=== PATIENT | male | born 1965 | race Caucasian/White ===

== ENCOUNTER 2016-11-09 06:28 | Observation (INO) ==
[2016-11-09] MEDS ORDERED: ONDANSETRON 4 MG/2 ML VIAL IV PRN (06:40)
[2016-11-09] MEDS ORDERED: ASPIRIN 325 MG TABLET PO STA (06:40)
[2016-11-09] MEDS ORDERED: ASPIRIN 325 MG TABLET ONE (06:43)
[2016-11-09] MEDS ORDERED: ALUM/MAG/SIMETH/LIDO VISC 1:1 30 ML BOTTLE PO STA (06:44)
[2016-11-09] MEDS ORDERED: FAMOTIDINE 20 MG/2 ML VIAL IV STA (06:44)
--- NOTE | 2016-11-09 06:49 | Emergency Department Note ---
Namrata Wakefield Gwan, am scribing for, and in the presence of, Kiran Tariq MD 06:41 . Chandni Wakefield James D, MD, personally performed the services described in this documentation, ascribed by Alyssa Ott in my presence, and it is both accurate and complete 644 . 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 His associated sxs have been diaphoresis and SOB. He stated that his pain feels like someone is sitting on his chest. 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 He noted that he has had a heart cath performed by Dr. Ruiz in June that resulted NML. He denies smoking. Patient has a PMHx of IDDM and HTN. Patient stated that this pain is similar to the pain he had before. No other problems/complaints reported in ED. patient states that he was awakened with his chest pain. He denies cigarette smoking. He does have a history of diabetes mellitus. Patient states that he was given 3 sublingual nitroglycerin in the ambulance and took one at home prior to being placed in the ambulance without any relief of his chest pain. Onset (ago): hour(s) Consistency: constant Severity: moderate Quality: other Allergies/Adverse Reactions: Allergies Allergy/AdvReac Type Severity Reaction Status Date / Time morphine Allergy Irritable Unverified 07/20/16 18:30 Home Medications: Home Medications Medication Instructions Recorded Confirmed Type Insulin Glargine [Lantus] 23 unit SUBCUT BID 07/20/16 11/09/16 History Insulin Lispro [HumaLOG KwikPen] See Protocol SUBCUT DAILY PRN 07/20/16 History Nitroglycerin Sl Tab [Nitrostat] 0.4 mg SL Q5M PRN 07/20/16 11/09/16 History metFORMIN [Glucophage] 850 mg PO TID 07/20/16 11/09/16 History Acetaminophen Tab [Tylenol Tab] 650 mg PO Q4H PRN #0 tablet 07/21/16 11/09/16 Rx Aspirin EC Tab 81 mg PO DAILY #30 tablet 07/21/16 11/09/16 Rx Atorvastatin [Lipitor] 20 mg PO BEDTIME #30 tablet 07/21/16 11/09/16 Rx Review of System - Review of System 12 point system: reviewed and no additional remarkable complaints except as stated - Review of System Constitutional: Present: as per HPI, diaphoresis Respiratory: Present: as per HPI, other (short of breathe) Cardiovascular: Present: as per HPI, chest pain Medical,Surgical,& Family Hx - Medical History Cardio: History of: CAD (he gives a history of having prior stents placed.), VT , Cardiovascular Problems No history of: Aneurysm, Cardiac Dysrhythmia, Cerebrovascular Disease, Congenital Heart Disease, CHF, Hypertension, Pacemaker, PVD, Valvular Heart Disease Neurology: No history of: Brain Aneurysm, Cerebral Hemorrhage, Cerebrovascular Accident , Cerebral Palsy, Dementia, Migraine, Multiple Sclerosis, Parkinson's Disease, Peripheral Neuropathy, Seizures, TIA, Vertigo, Neurologocal Cancer Endocrine: History of: Diabetes Mellitus (IDDM) No history of: Dyslipidemia - Surgical History Cardiac Surgeries: Sugical HX of: Cardiac Catheterization (stents times 2), Cardiac Surgery ([address] about 10 years ago) Thoracic Surgeries: Patient denies;: Organ Transplant, Lobectomy Neurologic Surgeries: Patient denies: Brain Aneurysm, Cerebral Hemorrhage, Neurologic Surgery HEENT Surgeries: Patient denies: Thyroid Surgery Abdominal Surgeries: Surgical HX of: Abdominal Surgery, Cholecystectomy ( gallbladder removal 2006) Reproductive Surgeries: Patient denies;: Genitourinary Surgery - Family History Family History: Reports;: Family Heart Disease (in their forties) Denies;: Family Anesthesia Reaction, Family Cancer, Family Diabetes, Family Hypertension, Family Psychiatric Problems, Family Stroke - Social History Smoking Status: Unknown if ever smoked Exam Vital Signs: Vital Signs Temperature 98.3 F 11/09/16 06:28 Pulse Rate 81 11/09/16 06:40 Respiratory Rate 20 11/09/16 06:40 Blood Pressure 101/43 11/09/16 06:40 O2 Sat by Pulse Oximetry 96 11/09/16 06:40 GENERAL: This is a well-nourished well-developed white male in no apparent distress. VITAL SIGNS: Reviewed HEENT: Head is atraumatic and normocephalic. Pupils are equal round react to light. Extraocular movements are intact. Oropharynx is benign with moist mucous membranes. NECK: Neck is soft and supple without tenderness. There are no masses. There is no lymphadenopathy. LUNGS: Lungs are clear to auscultation. Chest rises symmetrically. There is no chest wall tenderness. CV: Heart is regular rate and rhythm without murmurs rubs or gallops. ABDOMEN: Abdomen is soft, nontender to palpation. There are no abdominal abnormal masses palpated. There is no organomegaly. Bowel sounds are present and active. SKIN: Skin is warm and dry. No rash. EXTREMITIES: Patient has full range of motion without tenderness. There is no pedal edema. NEUROLOGIC: Awake alert and oriented 4. Cranial nerves II through XII are grossly intact. Motor is 5 over 5 in all extremities bilaterally. Course - Consultations Consultation #1: Discussed with hospitalist. Patient will be admitted for rule out myocardial ischemia. Time: 09:09 Results - Labs CBC & BMP: 11/09/16 06:36 11/09/16 06:36 Lab Results: I have reviewed the patients labs Labs: Laboratory Tests 11/09/16 06:36 Troponin I < 0.015 - EKG EKG results: interpreted by ERMD - Impressions EKG: Normal sinus rhythm with a rate of 79, old inferior VT, normal ST-T waves, normal axis. - Diagnostic Findings Procedure: Chest x-ray: image reviewed by me (No cardiomegaly, no pleural effusions), CT - chest: image reviewed by me (No evidence of pulmonary embolus.) Disposition Clinical Impression: Chest pain, Diabetes mellitus Case discussed with: patient Disposition: Still a Patient Condition: Stable Time of Disposition: 09:15
[2016-11-09] MEDS ORDERED: FAMOTIDINE 20 MG/2 ML VIAL IV ONE ×2 (06:50→07:11)
[2016-11-09] MEDS ORDERED: ALUM/MAG/SIMETH/LIDO VISC 1:1 30 ML BOTTLE PO ONE (06:50)
[2016-11-09 06:51] LABS: Basophils % 0.2 % (0.0-0.8); Eosinophils % 0.5 % (0.00-10.9); Hematocrit 39.4 VOL% (42.0-52.0); Hemoglobin 13.7 GM/DL (14.0-18.0); Immature Granulocytes % 0.2 %; Immature Granulocytes Absolute 0.02 #; Lymphocytes # 0.6 10*3/uL (1.4-4.0); Lymphocytes % 7.1 % (21.2-54.2); Mean Corpuscular HGB Conc 34.8 GM/DL (32-36); Mean Corpuscular Hemoglobin 28 PG (27-34); Mean Corpuscular Volume 81.6 FL (87-102); Mean Platelet Volume 12.2 FL (9.6-12.0); Monocytes # 0.7 10*3/uL (0.11-0.8); Monocytes % 7.6 % (1.7-12.7); Neutrophils # 7.3 10*3/uL (1.4-7.4); Neutrophils % 84.4 % (38.7-73.9); Platelet Count 122 10*3/uL (130-400); Red Blood Count 4.83 10*6/uL (3.8-5.5); White Blood Count 8.7 10*3/uL (4.5-13.71)
[2016-11-09 07:01] LABS: PT Patient Result 10.4 SECS; Partial Thromboplastin Time 22.6 SECS (0-40)
--- NOTE | 2016-11-09 07:12 | CT Report ---
CT chest PE study Indication: Left-sided chest pain. CT CHEST WITH CONTRAST, PE PROTOCOL DLP: 263 mGy*cm Comparison: None Technique: Axial CT images of the chest were obtained during the pulmonary arterial phase of contrast injection. Coronal reconstructions were provided. Omnipaque 350, may cc. Findings: No central, lobar or segmental pulmonary artery filling defects. Main pulmonary artery is normal in size. Heart size is normal. No pathologic mediastinal, axillary or hilar lymphadenopathy. Lungs are hypoinflated with vascular crowding. There is atelectasis dependently. Calcified granuloma lateral right upper lobe noted and in the right middle lobe. No pneumothorax or pleural effusion. No destructive bone lesions. Limited views of the upper abdomen appear grossly benign. Cholecystectomy clips are present. Impression: 1. No evidence of PE. 2. Pulmonary hypoinflation with vascular crowding. Atelectasis. PROCEDURE INTERPRETED AT [facility] DEPARTMENT OF RADIOLOGY Final Report Signed by: Edward To M.D.
--- NOTE | 2016-11-09 07:13 | XRay Report ---
XR chest 2V Indication: Chest pain. Chest 2 views: Comparison 07/20/16. Heart size and mediastinal contour normal. No discrete infiltrates are shown with scattered calcified granulomata present. Lungs are slightly hypoinflated with bibasilar atelectasis. Impression: Pulmonary hypoinflation with atelectasis. PROCEDURE INTERPRETED AT [facility] DEPARTMENT OF RADIOLOGY Final Report Signed by: Edward To M.D.
[2016-11-09 07:27] LABS: Albumin 3.7 G/DL (3.4-5.0); Bilirubin,Total 1.2 MG/DL (0.2-1.0); Calcium 8.6 MG/DL (8.5-10.1); Osmolality,Calculated 285.4 MOS/KG (273-304); Potassium 4.2 MMOL/L (3.5-5.1); Total Protein 6.7 G/DL (6.4-8.3)
[2016-11-09] MEDS ORDERED: DOCUSATE SODIUM 100 MG CAPSULE PO PRN (09:13)
[2016-11-09] MEDS ORDERED: ZALEPLON 5 MG CAPSULE PO PRN (09:13)
[2016-11-09] MEDS ORDERED: ACETAMINOPHEN 325 MG TABLET PO PRN (09:13)
--- NOTE | 2016-11-09 09:19 | EKG Report ---
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
--- NOTE | 2016-11-09 09:33 | Hospitalist History & Physical ---
<Cindy Florentino - Last Filed: 11/09/16 09:28> Assessment and Plan - Time spent with patient Time spent with patient: Greater than 30 minutes (due to assessment, plan and documentation.) (1) Chest pain Status: Acute Assessment and plan: admit to tele vte prophylaxis serial troponins,ekg's cardiology consult- Dr. Ruiz- known to him PRN medications labs in AM Current Visit: Yes (2) Diabetes mellitus Status: Acute Current Visit: Yes (3) Coronary artery disease Status: Chronic Current Visit: No (4) Family history of coronary artery disease Status: Chronic Current Visit: No History of Present Illness Chief complaint: chest pain History of present illness: Mr. Carlisle is a 51 year old male who presents to the ED today with complaints of left sided chest pain. He denies any radiation of his pain, but states that he did get short of breath, and vomit x 1 episode. He also had diaphoresis. He states it is not as severe as when he had his ID approximately 7 years ago. He states that he has recently been cathed by Dr. Fortino Ruiz. He does not recall having any stents placed. He is diabetic, not hypertensive. He states that both his Mother and Father have CAD. He does not smoke, drink or use illicits. He states that his chest pain came on last night while sitting. He has had pepcid, and GI cocktail along with ASA in the ED with some improvement in his symptoms. He does have a hx of GERD but states that this has been under good control. We will admit him to Tele for close cardiac monitoring, VTE prophylaxis, serial troponins, ekg's and cardiology consultation given his history. Further plan and addendum to follow by Dr. Le. Home Medications Medication Instructions Recorded Confirmed Type Insulin Glargine [Lantus] 23 unit SUBCUT BID 07/20/16 11/09/16 History Insulin Lispro [HumaLOG KwikPen] See Protocol SUBCUT DAILY PRN 07/20/16 History Nitroglycerin Sl Tab [Nitrostat] 0.4 mg SL Q5M PRN 07/20/16 11/09/16 History metFORMIN [Glucophage] 850 mg PO TID 07/20/16 11/09/16 History Acetaminophen Tab [Tylenol Tab] 650 mg PO Q4H PRN #0 tablet 07/21/16 11/09/16 Rx Aspirin EC Tab 81 mg PO DAILY #30 tablet 07/21/16 11/09/16 Rx Atorvastatin [Lipitor] 20 mg PO BEDTIME #30 tablet 07/21/16 11/09/16 Rx Allergies Allergy/AdvReac Type Severity Reaction Status Date / Time morphine Allergy Irritable Unverified 07/20/16 18:30 Medical,Surgical,& Family Hx - Medical History Cardio: History of: CAD (he gives a history of having prior stents placed.), ID , Cardiovascular Problems No history of: Aneurysm, Cardiac Dysrhythmia, Cerebrovascular Disease, Congenital Heart Disease, CHF, Hypertension, Pacemaker, PVD, Valvular Heart Disease Neurology: No history of: Brain Aneurysm, Cerebral Hemorrhage, Cerebrovascular Accident , Cerebral Palsy, Dementia, Migraine, Multiple Sclerosis, Parkinson's Disease, Peripheral Neuropathy, Seizures, TIA, Vertigo, Neurologocal Cancer Endocrine: History of: Diabetes Mellitus (IDDM) No history of: Dyslipidemia - Surgical History Cardiac Surgeries: Sugical HX of: Cardiac Catheterization (stents times 2), Cardiac Surgery ([address] about 10 years ago) Thoracic Surgeries: Patient denies;: Organ Transplant, Lobectomy Neurologic Surgeries: Patient denies: Brain Aneurysm, Cerebral Hemorrhage, Neurologic Surgery HEENT Surgeries: Patient denies: Thyroid Surgery Abdominal Surgeries: Surgical HX of: Abdominal Surgery, Cholecystectomy ( gallbladder removal 2006) Reproductive Surgeries: Patient denies;: Genitourinary Surgery - Family History Family History: Reports;: Family Heart Disease (in their forties) Denies;: Family Anesthesia Reaction, Family Cancer, Family Diabetes, Family Hypertension, Family Psychiatric Problems, Family Stroke - Social History Smoking Status: Never smoker Frequency of Alcohol Use: None Type of Drug Use: None Marital Status: Unknown Lives With:: Alone Functional capacity: independent ambulation - Constitutional Constitutional: Absent: chills, fatigue, headache(s) - EENT Eyes: Absent: blurry vision, diplopia Ears: Absent: decreased hearing, tinnitus Nose, mouth and throat: Absent: dysphagia, headache(s) - Cardiovascular Cardiovascular: Present: chest pain at rest (resolved), dyspnea (resolved). Absent: radiating jaw, neck or arm pain, palpitations - Respiratory Respiratory: Absent: cough, dyspnea, hemoptysis - Gastrointestinal Gastrointestinal: Present: nausea, vomiting. Absent: abdominal pain, melena - Genitourinary Genitourinary: Absent: difficulty urinating, flank pain, hematuria - Musculoskeletal Musculoskeletal: Absent: back pain, joint swelling - Neurological Neurological: Absent: confusion, dizziness - Psychiatric Psychiatric: Absent: anxiety, confusion, depression - Endocrine Endocrine: Absent: cold intolerance, heat intolerance - Hematologic/Lymphatic Hematologic/Lymphatic: Absent: easy bleeding, easy bruising Exam - Constitutional Vitals: Period Temp Pulse Resp BP Sys/Bridges Pulse Ox Last 24 Hr 98.3 F 81-90 20-20 101-101/43-43 96-98 General appearance: normal weight, no acute distress - Head Head exam: Present: normal inspection, normocephalic - Eye Eye exam: Present: EOMI. Absent: scleral icterus Pupils: Present: JANICE, normal accommodation - ENT ENT exam: Present: normal exam, normal oropharynx - Neck Neck exam: Present: normal inspection. Absent: lymphadenopathy - Respiratory Respiratory exam: Present: clear to auscultation bilaterally. Absent: accessory muscle use - Cardiovascular Cardiovascular exam: Present: regular rate and rhythm. Absent: carotid bruit - GI/Abdominal GI/Abdominal exam: Present: normal bowel sounds, soft. Absent: tenderness - Extremities Exam Extremities exam: Present: normal inspection. Absent: edema - Back Exam Back exam: Present: normal inspection. Absent: muscle spasm - Neurological Exam Neurological exam: Present: alert, oriented X3 - Psychiatric Psychiatric exam: Present: normal affect, normal mood - Skin Skin exam: Present: normal color, warm, dry, intact Results - Labs CBC & BMP: 11/09/16 06:36 11/09/16 06:36 Lab Results: I have reviewed the past 24 hour labs - Diagnostic Findings Procedure: Chest x-ray: report reviewed by me (pulmonary hypoinflation with atelectasis), CT - chest: report reviewed by me (no PE; pulmonary hypoinflation with vascular crowding; atelectasis. 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 Mr. Carlisle is a 51 year old male present with left sided CP started at 3 am at rest. He describes his CP as continuous , does not relate exertion. He had similar CP 7 years ago when he had ID. His last LHC was in jul 21, 2016 which revealed patent coronary arteries. He is on daily asa 81 mg at home. Family history is significant for CAd in both parents. On PE- alert, oriented, no distress noted, VS stable, lungs - clear b/l, card- RRR, abd soft, nondistended, nontender, ext- pp+2, no edema , no clubbibg or acrocyanosis, neuro- grossly intact. troponins x2 negative. pt had some relive from GI cocktail and pepcid in ER. He was given 325 mg ASA. Morphine IV PRN for CP. O2 as needed. Pt was asmitted to tele on cardiac monitoring, troponins x 3, ecg. Will await for cardiology recommendations. Exam - Constitutional Vitals: Period Temp Pulse Resp BP Sys/Bridges Pulse Ox Last 24 Hr 97.7 F 66-70 16-20 94-123/54-68 97-100 Results - Labs CBC & BMP: 11/09/16 06:36 11/09/16 06:36
[2016-11-09] MEDS ORDERED: NITROGLYCERIN SL 0.4 MG TABLET SL PRN (11:00)
[2016-11-09] MEDS: ONDANSETRON 4 MG/2 ML VIAL IV PRN ×3 (11:35→21:36)
--- NOTE | 2016-11-09 11:47 | EKG Report ---
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
[2016-11-09] MEDS: ENOXAPARIN 40 MG/0.4 ML SYRINGE SUBCUT SCH (15:10)
[2016-11-09] MEDS: metFORMIN 850 MG TABLET PO SCH ×2 (15:11→21:36)
--- NOTE | 2016-11-09 18:51 | Cardiology Consult Note ---
Stuart Wakefield Lauren, RN, am scribing for, and in the presence of, Salinas Murray MD 18:51. Assessment and Plan - Time spent with patient Time spent with patient: Greater than 30 minutes (1) Chest pain Status: Acute Assessment and plan: 1. 51-year-old WF remote smoker with recurrent episodes of chest pain despite negative heart catheterization most recently June [address] Ruiz. He had 2 hours of chest pain starting at 130 a.m. this morning with negative cardiac markers and no acute EKG changes 2. Reports several episodes of syncope? At home this morning prior to arrival with blood pressure 80s systolic initially, now 110 systolic; give normal saline bolus 3. Chest pain has not returned, though he has had some intermittent nausea of uncertain etiology 4. Previous ejection fraction 55%; will check repeat echocardiogram Current Visit: No (2) Family history of coronary artery disease Status: Chronic Assessment and plan: Patient reports a family history of heart disease including mother and father and brother. The patient reports a history of having a myocardial infarction 7 years ago and history of coronary artery disease however we have no records of this. He recently underwent left heart catheterization 07/21/[address] Ruiz which revealed widely patent coronary arteries without visible stents on fluoroscopy or photography. At that time he had no disease to account for his symptomatology and no residual or evidence for prior intervention. Current Visit: No (3) Dyslipidemia Status: Chronic Assessment and plan: Continue Lipitor. Current Visit: No (4) Diabetes mellitus Status: Acute Assessment and plan: Hospital medicine following. Current Visit: Yes History of Present Illness - Data of Consult Patient: known to practice within the last 3 years (saw Dr. Ruiz during hospitalization in June 2016) Consult date: 11/09/16 Requesting Physician: Cindy Florentino - Consult Narrative Reason for consult: chest pain History of present illness: Mr. Carlisle is a 51 year old male who has been recently followed by Dr. Ruiz. Mr. Carlisle reports a history of myocardial infarction 7 years ago. He has a history of diabetes on insulin and former smoker. He has risk factors significant for: Sedentary lifestyle, former smoker, hypertension. He presents to the emergency department today complaining of chest pain that woke him up about 230 this morning. He describes this pain as a pressure in his mid to left sternal. It does not radiate. It has no exacerbating or alleviating factors. It is nonreproducible. He tells me it was accompanied by shortness of breath. He reports he took one sublingual nitroglycerin at home with no relief. He was also given 2 additional sublingual nitroglycerin by EMS with no relief. He tells me he developed nausea on the ambulance ride to the emergency department. His daughter is at the bedside and tells me he passed out 3 times this morning. He does not remember this. His daughter says he was unconscious for approximately 5 minutes each time. He did not have any tremors, shakes, loss of bowel or bladder function, nor did he bite his tongue or cheek. He is currently neurologically intact. Mr. Carlisle was admitted to the hospital back in June with similar complaints of chest pain and reported having a history of coronary artery disease with previous stent placement. He underwent a left heart catheterization by Dr. Ruiz on 07/21/2016. He was found to have an ejection fraction of 55% and widely patent coronary arteries without visible stent seen on fluoroscopy or photography. At that time he had no disease to account for his symptomatology and no residual or evidence for current intervention. His first troponin is negative. EKG shows sinus rhythm. Use a GI cocktail, IV Pepcid, and aspirin in the emergency room with relief of pain. We will continue cycle cardiac biomarkers and EKGs. He denies exertional chest pain or shortness of breath, palpitations. CC: Elisabeth Le MD - Home Medications and Allergies Home Medications: Home Medications Medication Instructions Recorded Confirmed Type Insulin Glargine [Lantus] 23 unit SUBCUT BID 07/20/16 11/09/16 History Insulin Lispro [HumaLOG KwikPen] See Protocol SUBCUT DAILY PRN 07/20/16 History Nitroglycerin Sl Tab [Nitrostat] 0.4 mg SL Q5M PRN 07/20/16 11/09/16 History metFORMIN [Glucophage] 850 mg PO TID 07/20/16 11/09/16 History Acetaminophen Tab [Tylenol Tab] 650 mg PO Q4H PRN #0 tablet 07/21/16 11/09/16 Rx Aspirin EC Tab 81 mg PO DAILY #30 tablet 07/21/16 11/09/16 Rx Atorvastatin [Lipitor] 20 mg PO BEDTIME #30 tablet 07/21/16 11/09/16 Rx Allergies/Adverse Reactions: Allergies Allergy/AdvReac Type Severity Reaction Status Date / Time morphine Allergy Irritable Unverified 07/20/16 18:30 - Constitutional Constitutional: Absent: anorexia, chills, daytime sleepiness, excessive sweating , fatigue, fever(s), frequent falls, headache(s), increased appetite, lethargy, malaise, night sweats, weakness, weight gain, weight loss - EENT Eyes: Absent: blurry vision, diplopia, loss of vision Ears: Absent: decreased hearing, ear discharge, ear pain Nose, mouth and throat: Absent: dysphagia, epistaxis, headache(s), hoarseness, lip swelling, nasal congestion, neck mass, neck pain, sinus pressure, sore throat, throat swelling, tongue swelling, vertigo - Cardiovascular Cardiovascular: Present: as per HPI, chest pain at rest, dyspnea. Absent: chest pain with activity, claudication, diaphoresis, dyspnea on exertion, edema , radiating jaw, neck or arm pain, orthopnea, palpitations, PND - Respiratory Respiratory: Present: as per HPI, dyspnea. Absent: cough, hemoptysis, dyspnea on exertion, wheezing, pain on inspiration - Gastrointestinal Gastrointestinal: Absent: abdominal pain, bloating, change in bowel habits, constipation, diarrhea, heartburn, hematochezia, melena, nausea, vomiting - Genitourinary Genitourinary: Absent: dysuria, flank pain, hematuria, nocturia, urinary frequency, urinary incontinence - Musculoskeletal Musculoskeletal: Absent: arthralgias, back pain, joint swelling, limited range of motion, muscle cramps, muscle weakness, myalgias - Neurological Neurological: Present: syncope. Absent: abnormal gait, abnormal speech, behavioral changes, confusion, convulsions, disequilibrium, dizziness, focal weakness, frequent falls, headache(s), memory loss, numbness, paresthesias, radicular pain, tremor(s) - Psychiatric Psychiatric: Present: confusion. Absent: anxiety, depression, difficulty concentrating, memory loss, panic attacks - Endocrine Endocrine: Absent: cold intolerance, fatigue, heat intolerance, polydipsia, polyphagia - Hematologic/Lymphatic Hematologic/Lymphatic: Absent: easy bleeding, easy bruising, lymphadenopathy Medical,Surgical,& Family Hx - Medical History Cardio: History of: CAD (he gives a history of having prior stents placed.), ID , Cardiovascular Problems No history of: Aneurysm, Cardiac Dysrhythmia, Cerebrovascular Disease, Congenital Heart Disease, CHF, Hypertension, Pacemaker, PVD, Valvular Heart Disease Neurology: No history of: Brain Aneurysm, Cerebral Hemorrhage, Cerebrovascular Accident , Cerebral Palsy, Dementia, Migraine, Multiple Sclerosis, Parkinson's Disease, Peripheral Neuropathy, Seizures, TIA, Vertigo, Neurologocal Cancer Endocrine: History of: Diabetes Mellitus (IDDM) No history of: Dyslipidemia - Surgical History Cardiac Surgeries: Sugical HX of: Cardiac Catheterization (stents times 2), Cardiac Surgery ([address] about 10 years ago) Thoracic Surgeries: Patient denies;: Organ Transplant, Lobectomy Neurologic Surgeries: Patient denies: Brain Aneurysm, Cerebral Hemorrhage, Neurologic Surgery HEENT Surgeries: Patient denies: Thyroid Surgery Abdominal Surgeries: Surgical HX of: Abdominal Surgery, Cholecystectomy ( gallbladder removal 2006) Reproductive Surgeries: Patient denies;: Genitourinary Surgery - Family History Family History: Reports;: Family Heart Disease (in their forties) Denies;: Family Anesthesia Reaction, Family Cancer, Family Diabetes, Family Hypertension, Family Psychiatric Problems, Family Stroke - Social History Smoking Status: Never smoker Frequency of Alcohol Use: None Type of Drug Use: None Physical Examination Vital Signs Temp Pulse Resp BP Pulse Ox 98.3 F 90 20 101/43 98 11/09/16 06:28 11/09/16 06:28 11/09/16 06:28 11/09/16 06:28 11/09/16 06:28 General: Present: Appears Well, No Apparent Distress HEENT: Present: Normocephaly, Mucus Membranes Moist Neck: Present: Supple Neck, Midline Trachea, No Masses, No Bruit Cardiac: Present: Reg Rate and Rhythm, No Murmur Lungs: Present: Decreased Breath Sounds, No Wheeze, Rales, Rhonchi Neuro: Present: Grossly Intact. Absent: Resting Tremor, Essential Tremor Abdomen: Present: Soft, Active Bowel Sounds, No Masses, No Pulsations/Bruits, Non-Tender Skin: Present: Clear. Absent: Rash Extremities: Present: No Clubbing, No Cyanosis, No Edema, Normal Upper Extr. Pulses, Normal Lower Extr. Pulses Result/EKG - Labs CBC & BMP: 11/09/16 06:36 11/09/16 06:36 Lab Results: I have reviewed the past 24 hour labs Labs: Laboratory Results - last 24 hr 11/09/16 13:20 Troponin I < 0.015 - EKG EKG results: interpreted by me, sinus rhythm I, Salinas Murray MD, personally performed the services described in this documentation, ascribed by Tarah Davidson RN in my presence, and it is both accurate and complete [id number] .
[2016-11-09] MEDS ORDERED: ATORVASTATIN 20 MG TABLET PO SCH (21:00)
[2016-11-09] MEDS ORDERED: SODIUM CHLORIDE 0.9% 500 ML IV ONE (21:25)
[2016-11-09] MEDS: INSULIN GLARGINE 100 UNIT/ML SUBCUT SCH (21:53)
[2016-11-10 05:27] LABS: Basophils % 0.3 % (0.0-0.8); Eosinophils # 0.1 10*3/uL (0.0-0.87); Eosinophils % 2.4 % (0.00-10.9); Hematocrit 39.2 VOL% (42.0-52.0); Hemoglobin 13.1 GM/DL (14.0-18.0); Immature Granulocytes % 0.2 %; Immature Granulocytes Absolute 0.01 #; Lymphocytes # 1.2 10*3/uL (1.4-4.0); Lymphocytes % 20.7 % (21.2-54.2); Mean Corpuscular HGB Conc 33.4 GM/DL (32-36); Mean Corpuscular Hemoglobin 27 PG (27-34); Mean Corpuscular Volume 81.8 FL (87-102); Mean Platelet Volume 11.9 FL (9.6-12.0); Monocytes # 0.7 10*3/uL (0.11-0.8); Monocytes % 11.2 % (1.7-12.7); Neutrophils # 3.8 10*3/uL (1.4-7.4); Neutrophils % 65.2 % (38.7-73.9); Platelet Count 120 10*3/uL (130-400); Red Blood Count 4.79 10*6/uL (3.8-5.5); White Blood Count 5.8 10*3/uL (4.5-13.71)
[2016-11-10 06:07] LABS: Albumin 3.4 G/DL (3.4-5.0); Calcium 8.4 MG/DL (8.5-10.1); Magnesium 2.4 MG/DL (1.8-2.4); Osmolality,Calculated 291.6 MOS/KG (273-304); Potassium 3.8 MMOL/L (3.5-5.1); Risk Ratio 3.18; Thyroid Stimulating Hormone 0.578 uIU/ml (0.358-3.74); VLDL CHOLESTEROL 17.6 MG/DL
[2016-11-10] MEDS ORDERED: PANTOPRAZOLE 40 MG TABLET PO SCH (09:00)
[2016-11-10] MEDS ORDERED: ASPIRIN EC 81 MG TABLET PO SCH (09:00)
[2016-11-10] MEDS: metFORMIN 850 MG TABLET PO SCH ×2 (09:26→14:56)
[2016-11-10] MEDS: ENOXAPARIN 40 MG/0.4 ML SYRINGE SUBCUT SCH (09:33)
[2016-11-10] MEDS: INSULIN GLARGINE 100 UNIT/ML SUBCUT SCH (09:34)
[2016-11-10] MEDS: ALUM/MAG/SIMETH/LIDO VISC 1:1 30 ML BOTTLE PO SCH ×2 (11:29→14:57)
[2016-11-10 11:37] LABS: Troponin I Only < 0.015 NG/ML (0.00-0.045)
--- NOTE | 2016-11-10 15:23 | ECHO Report ---
Antonio Carlisle Exam Date: 11/10/2016 08:41 Referring Physician: Technologist: Irina Calixto RDCS Age: 51 Ht (in): Wt (lb): Gender: M Exam Location: [facility] [place] Echo Indications: Chest pain, unspecified, Syncope and collapse, Shortness of breath, IDDM, Dyslipidemia BP: / HR: Rhythm: Sinus Technical Quality: IMPRESSIONS 1-2+ left atrial enlargement 1-2+ septal hypertrophy Borderline normal LV systolic function with ejection fraction estimated 50-55%, without segmental wall motion normality Mild thickening of the mitral valve and mild aortic sclerosis (normal motion) Trace to 1+ mitral and tricuspid regurgitation with RVSP 25 mmHg plus RAP MEASUREMENTS (Male / Female) Normal Values 2D ECHO LV Diastolic Diameter PLAX 4.1 cm 4.2 - 5.9 / 3.9 - 5.3 cm LV Systolic Diameter PLAX 3.1 cm LV Fractional Shortening PLAX 23.1 % IVS Diastolic Thickness 1.4 cm 0.6 - 1.0 / 0.6 - 0.9 cm LVPW Diastolic Thickness 1.3 cm 0.6 - 1.0 / 0.6 - 0.9 cm RV Internal Dim ED PLAX 2.6 cm Aortic Root Diameter 3.1 cm LA Systolic Diameter LX 4.7 cm 3.0 - 4.0 / 2.7 - 3.8 cm DOPPLER TR Peak Velocity 250.0 cm/s TR Peak Gradient 25.0 mmHg FINDINGS Left Ventricle Normal left ventricular cavity size. Mild left ventricular hypertrophy. Left ventricular ejection fraction is estimated at 55 %. Right Ventricle The right ventricle is normal in size and function. Right Atrium The right atrium is mildly enlarged. Left Atrium The left atrium is mildly enlarged. Mitral Valve Thickened mitral valve. Trace to mild mitral valve regurgitation. Aortic Valve Morphologically normal aortic valve without significant sclerosis or stenosis. There is no aortic regurgitation. Tricuspid Valve Morphologically normal tricuspid valve. Trace tricuspid valve regurgitation. Tricuspid regurgitation velocities suggest a PAP of 35 mmHg. Pulmonic Valve Morphologically normal pulmonic valve. Trace pulmonary valve regurgitation. Pericardium Normal pericardium without effusion. Aorta Normal ascending aorta dimension. Salinas Mruray (Electronically Signed) Final Date: 10 November 2016 15:22
[2016-11-10 16:20] VITALS: BP 110/63
--- NOTE | 2016-11-10 16:27 | Discharge Summary ---
Discharge Plan - Discharge Data Disposition: Disch To Home/Self Care Condition at Discharge: Stable Discharge Diet: advance to your usual diet Activity: resume usual activities as tolerated Hygiene: no restrictions Driving: no restrictions Contact your physician if you experience:: Nausea/Vomiting, Shortness of breath - Discharge Medications New Aspirin EC Tab 81 mg PO DAILY tablet Insulin Glargine [Lantus] 23 unit SUBCUT BID injection Nitroglycerin Sl Tab [Nitrostat] 0.4 mg SL Q5M PRN #0 tablet PRN Reason: Chest Pain metFORMIN [Glucophage] 850 mg PO TID tablet Atorvastatin [Lipitor] 20 mg PO BEDTIME tablet Pantoprazole Tab [Protonix Tab] 40 mg PO DAILY #30 tablet Continue Insulin Lispro [HumaLOG KwikPen] See Protocol SUBCUT DAILY PRN PRN Reason: Glucose Management Discontinued Nitroglycerin Sl Tab [Nitrostat] 0.4 mg SL Q5M PRN PRN Reason: Chest Pain metFORMIN [Glucophage] 850 mg PO TID Insulin Glargine [Lantus] 23 unit SUBCUT BID Acetaminophen Tab [Tylenol Tab] 650 mg PO Q4H PRN #0 tablet PRN Reason: Fever, Headache, Mild Pain Aspirin EC Tab 81 mg PO DAILY #30 tablet Atorvastatin [Lipitor] 20 mg PO BEDTIME #30 tablet - Follow Up or Referral - Forms/Instructions Exam - Constitutional Vitals: Period Temp Pulse Resp BP Sys/Bridges Pulse Ox Last 24 Hr 96.9 F-97.9 F 63-75 18-20 110-118/56-63 94-95 Discharge Results Labs on day of discharge: Labs from last 24 hours 11/10/16 11/10/16 11/10/16 15:50 11:33 10:51 WBC RBC Hgb Hct MCV MCH MCHC RDW Plt Count MPV Neut % (Auto) Lymph % (Auto) Wilcox % (Auto) Eos % (Auto) Baso % (Auto) Neut # (Auto) Lymph # (Auto) Wilcox # (Auto) Eos # (Auto) Baso # (Auto) Immature Gran % Nucleated RBC % Immature Gran # Nucleated RBCs # Sodium Potassium Chloride Carbon Dioxide Anion Gap BUN Creatinine GFR Calculation BUN/Creatinine Ratio Glucose POC Glucose 100 111 H Calculated Osmolality Calcium Magnesium Total Bilirubin AST ALT Alkaline Phosphatase Total Creatine Kinase 57 Troponin I < 0.015 B-Natriuretic Peptide Total Protein Albumin Globulin Albumin/Globulin Ratio Triglycerides Cholesterol LDL Cholesterol VLDL Cholesterol HDL Cholesterol Heart Disease Risk Ratio [facility] 3rd Generation 11/10/16 11/10/16 11/10/16 07:30 05:01 05:01 WBC RBC Hgb Hct MCV MCH MCHC RDW Plt Count MPV Neut % (Auto) Lymph % (Auto) Wilcox % (Auto) Eos % (Auto) Baso % (Auto) Neut # (Auto) Lymph # (Auto) Wilcox # (Auto) Eos # (Auto) Baso # (Auto) Immature Gran % Nucleated RBC % Immature Gran # Nucleated RBCs # Sodium 146 H Potassium 3.8 Chloride 109 H Carbon Dioxide 28 Anion Gap 12.8 BUN 12 Creatinine 1.10 GFR Calculation 85 BUN/Creatinine Ratio 10.00 Glucose 132 H POC Glucose 127 H Calculated Osmolality 291.6 Calcium 8.4 L Magnesium 2.4 Total Bilirubin 1.00 AST 24 ALT 37 Alkaline Phosphatase 133 H Total Creatine Kinase Troponin I B-Natriuretic Peptide 20 Total Protein 6.0 L Albumin 3.4 Globulin 2.6 Albumin/Globulin Ratio 1.3 Triglycerides 88 Cholesterol 156 LDL Cholesterol 89.0 VLDL Cholesterol 17.6 HDL Cholesterol 49 Heart Disease Risk Ratio 3.18 TSH 3rd Generation 0.578 11/10/16 11/09/16 05:01 21:29 WBC 5.8 D RBC 4.79 Hgb 13.1 L Hct 39.2 L MCV 81.8 L MCH 27 MCHC 33.4 RDW 13.0 Plt Count 120 L MPV 11.9 Neut % (Auto) 65.2 Lymph % (Auto) 20.7 L Wilcox % (Auto) 11.2 Eos % (Auto) 2.4 Baso % (Auto) 0.3 Neut # (Auto) 3.8 Lymph # (Auto) 1.2 L Wilcox # (Auto) 0.7 Eos # (Auto) 0.1 Baso # (Auto) 0.0 Immature Gran % 0.2 Nucleated RBC % 0.0 Immature Gran # 0.01 Nucleated RBCs # 0.00 Sodium Potassium Chloride Carbon Dioxide Anion Gap BUN Creatinine GFR Calculation BUN/Creatinine Ratio Glucose POC Glucose 172 H Calculated Osmolality Calcium Magnesium Total Bilirubin AST ALT Alkaline Phosphatase Total Creatine Kinase Troponin I B-Natriuretic Peptide Total Protein Albumin Globulin Albumin/Globulin Ratio Triglycerides Cholesterol LDL Cholesterol VLDL Cholesterol HDL Cholesterol Heart Disease Risk Ratio [facility] 3rd Generation DS: Provider Date of admission: 11/09/16 09:13 Primary care physician: . No PCP Attending physician on admission: Elisabeth Le MD Consults: 11/09/16 09:20 Consult to Pharmacy [CONS] Routine Reason for Pharmacy Consult: Adjust Meds Renal Funct 11/09/16 09:28 Consult to Physician [CONS] Routine Comment: chest pain, known to you, hx [place] Consulting Provider: Edward Ruiz Consult to Specialist Group: Cardiology Person Notified: ROSY Date Notified: 11/10/16 Time Notified: 08:20 Discharging clinician: Elisabeth Le MD
--- NOTE | 2016-11-10 16:28 | Cardiology Progress Note ---
Stuart Wakefield Lauren, RN, am scribing for, and in the presence of, Salinas Murray MD 16:28. Assessment and Plan - Time spent with patient Time spent with patient: Less than 30 minutes (1) Chest pain Status: Acute Assessment and plan: November 09: 1. 51-year-old WF remote smoker with recurrent episodes of chest pain despite negative heart catheterization most recently June [address] Ruiz. He had 2 hours of chest pain starting at 130 a.m. this morning with negative cardiac markers and no acute EKG changes 2. Reports several episodes of syncope? At home this morning prior to arrival with blood pressure 80s systolic initially, now 110 systolic; give normal saline bolus 3. Chest pain has not returned, though he has had some intermittent nausea of uncertain etiology 4. Previous ejection fraction 55%; will check repeat echocardiogram November 10 update: 1. No further episodes of chest pain, since he had GI cocktail at the time of admission; suspected GERD/possible gastritis/esophagitis? 2. No further syncopal episodes; he does not recall having these and it was likely orthostatic hypotension from nitroglycerin he took prior to admission; his blood pressure is been quite stable here 3. Echocardiogram shows borderline normal LV function with EF 50-55% 4. Recommend H2 edi daily or PPI daily [id number] with follow-up in one to [address] Ruiz who did his heart catheterization symptoms 2015 ( no evidence of previous stenting and no evidence of significant disease) 5. Can be discharged from cardiac standpoint Current Visit: No (2) Family history of coronary artery disease Status: Chronic Assessment and plan: Patient reports a family history of heart disease including mother and father and brother. The patient reports a history of having a myocardial infarction 7 years ago and history of coronary artery disease however we have no records of this. He recently underwent left heart catheterization 07/21/[address] Ruiz which revealed widely patent coronary arteries without visible stents on fluoroscopy or photography. At that time he had no disease to account for his symptomatology and no residual or evidence for prior intervention. Current Visit: No (3) Dyslipidemia Status: Chronic Assessment and plan: Continue Lipitor. Current Visit: No (4) Diabetes mellitus Status: Acute Assessment and plan: Hospital medicine following. Current Visit: Yes Cardiology - PN: Subj Interval history: Mr. Carlisle is feeling better today. He is resting comfortably. He denies any further chest pain, shortness of breath. He denies palpitations, dizziness , lightheadedness. No further syncopal episodes. We will review echocardiogram. Cardiac biomarkers have all been negative and he has had no acute EKG changes. Depending on results of echocardiogram it may be acceptable for him to be discharged home soon. Exam (Progress Note) - Constitutional Vitals: Period Temp Pulse Resp BP Sys/Bridges Pulse Ox Last 24 Hr 96.9 F-97.9 F 63-75 18-20 110-118/56-59 94-95 General appearance: normal weight, no acute distress - Head Head exam: Present: normal inspection, normocephalic - Eye Eye exam: Absent: conjunctival injection, periorbital swelling, scleral icterus Pupils: Absent: dilated - ENT ENT exam: Present: normal exam, normal external ear exam - Neck Neck exam: Present: normal inspection. Absent: tenderness - Respiratory Respiratory exam: Present: clear to auscultation bilaterally. Absent: chest wall tenderness - Cardiovascular Cardiovascular exam: Present: regular rate and rhythm. Absent: carotid bruit, diastolic murmur, systolic murmur - GI/Abdominal GI/Abdominal exam: Present: normal bowel sounds, soft. Absent: distended, tenderness - Extremities Exam Extremities exam: Present: normal inspection, other (2+ DP pulses bilaterally.) . Absent: edema - Neurological Exam Neurological exam: Present: alert, oriented X3, other (grossly intact, no resting or essential tremor.) - Psychiatric Psychiatric exam: Present: normal affect, normal mood - Skin Skin exam: Present: warm, dry Result/EKG - Labs CBC & BMP: 11/10/16 05:01 11/10/16 05:01 Lab Results: I have reviewed the past 24 hour labs Labs: Laboratory Results - last 24 hr 11/09/16 11/09/16 11/10/16 13:20 21:29 05:01 WBC 5.8 D RBC 4.79 Hgb 13.1 L Hct 39.2 L MCV 81.8 L MCH 27 MCHC 33.4 RDW 13.0 Plt Count 120 L MPV 11.9 Neut % (Auto) 65.2 Lymph % (Auto) 20.7 L Eddy % (Auto) 11.2 Eos % (Auto) 2.4 Baso % (Auto) 0.3 Neut # (Auto) 3.8 Lymph # (Auto) 1.2 L Eddy # (Auto) 0.7 Eos # (Auto) 0.1 Baso # (Auto) 0.0 Immature Gran % 0.2 Nucleated RBC % 0.0 Immature Gran # 0.01 Nucleated RBCs # 0.00 Sodium Potassium Chloride Carbon Dioxide Anion Gap BUN Creatinine GFR Calculation BUN/Creatinine Ratio Glucose POC Glucose 172 H Calculated Osmolality Calcium Magnesium Total Bilirubin AST ALT Alkaline Phosphatase Total Creatine Kinase Troponin I < 0.015 B-Natriuretic Peptide Total Protein Albumin Globulin Albumin/Globulin Ratio Triglycerides Cholesterol LDL Cholesterol VLDL Cholesterol HDL Cholesterol Heart Disease Risk Ratio TSH 3rd Generation 11/10/16 11/10/16 11/10/16 05:01 05:01 07:30 WBC RBC Hgb Hct MCV MCH MCHC RDW Plt Count MPV Neut % (Auto) Lymph % (Auto) Eddy % (Auto) Eos % (Auto) Baso % (Auto) Neut # (Auto) Lymph # (Auto) Eddy # (Auto) Eos # (Auto) Baso # (Auto) Immature Gran % Nucleated RBC % Immature Gran # Nucleated RBCs # Sodium 146 H Potassium 3.8 Chloride 109 H Carbon Dioxide 28 Anion Gap 12.8 BUN 12 Creatinine 1.10 GFR Calculation 85 BUN/Creatinine Ratio 10.00 Glucose 132 H POC Glucose 127 H Calculated Osmolality 291.6 Calcium 8.4 L Magnesium 2.4 Total Bilirubin 1.00 AST 24 ALT 37 Alkaline Phosphatase 133 H Total Creatine Kinase Troponin I B-Natriuretic Peptide 20 Total Protein 6.0 L Albumin 3.4 Globulin 2.6 Albumin/Globulin Ratio 1.3 Triglycerides 88 Cholesterol 156 LDL Cholesterol 89.0 VLDL Cholesterol 17.6 HDL Cholesterol 49 Heart Disease Risk Ratio 3.18 TSH 3rd Generation 0.578 11/10/16 10:51 WBC RBC Hgb Hct MCV MCH MCHC RDW Plt Count MPV Neut % (Auto) Lymph % (Auto) Eddy % (Auto) Eos % (Auto) Baso % (Auto) Neut # (Auto) Lymph # (Auto) Eddy # (Auto) Eos # (Auto) Baso # (Auto) Immature Gran % Nucleated RBC % Immature Gran # Nucleated RBCs # Sodium Potassium Chloride Carbon Dioxide Anion Gap BUN Creatinine GFR Calculation BUN/Creatinine Ratio Glucose POC Glucose Calculated Osmolality Calcium Magnesium Total Bilirubin AST ALT Alkaline Phosphatase Total Creatine Kinase 57 Troponin I < 0.015 B-Natriuretic Peptide Total Protein Albumin Globulin Albumin/Globulin Ratio Triglycerides Cholesterol LDL Cholesterol VLDL Cholesterol HDL Cholesterol Heart Disease Risk Ratio TSH 3rd Generation - EKG EKG results: interpreted by me, sinus rhythm ITerri Randall Scott, MD, personally performed the services described in this documentation, ascribed by Tarah Davidson RN in my presence, and it is both accurate and complete [id number] .
== END 2016-11-10 18:55 | disposition home or self-care (01) ==
LOC: EDBD → EDUNIT# → N.ED 06:28 → N.EDINP 06:28 → N.TELES 09:59
PROVIDERS: ADMIT Internal Medicine; ATTEND Internal Medicine